=== PATIENT | male | born 1960 | race Two or more races ===

== ENCOUNTER 2019-04-30 15:32 | Inpatient (IN) | payer MEDICAID ==
[~2019-04-30] VITALS: Ht 175.3 cm; Wt 97.1 kg
[2019-04-30] MEDS: cloNIDine HCL 0.1 MG TAB PO ONE ×2 (15:58→16:06)
[2019-04-30] MEDS ORDERED: cloNIDine HCL 0.1 MG TAB ONE (16:01)
[2019-04-30] MEDS ORDERED: cloNIDine HCL 0.1 MG TAB PO ONE (16:15)
[2019-04-30 16:27] LABS: Basophils # (auto) 0.1 uL; Basophils % (auto) 1.3 % (0.0-2.0); Eosinophils # (auto) 0.1 uL; Hematocrit 46.4 % (41.0-53.0); Hemoglobin 15.5 g/dL (13.5-17.5); Lymphocytes # (auto) 1.6 uL; Lymphocytes % (auto) 20.6 % (10.0-50.0); Mean Corpuscular Hemoglobin 32.6 pg (28.0-32.0); Mean Corpuscular Hgb Conc. 33.4 g/dL (32.0-36.0); Mean Corpuscular Volume 97.6 fL (80.0-100.0); Monocytes # (auto) 0.6 uL; Monocytes % (auto) 7.7 % (0.0-12.0); Neutrophils # (auto) 5.4 uL; Neutrophils % (auto) 69.4 % (37.0-80.0); Platelet Count (auto) 228 10^3/uL (140-450); Red Blood Cells 4.76 10^6/uL (4.5-5.90); Red Cell Distribution Width 15.8 % (11.8-14.3); White Blood Cell 7.8 10^3/uL (4.4-10.8)
[2019-04-30 16:37] LABS: Albumin 3.7 g/dL (3.4-5.0); Calcium 8.5 mg/dL (8.5-10.1); Potassium 3.4 mmol/L (3.5-5.1)
[2019-04-30 16:40] LABS: BUN/Creatinine Ratio 19.6; Bilirubin, Total 0.9 mg/dL (0.2-1.0); Total Protein 7.3 g/dL (6.4-8.2)
[2019-04-30] MEDS ORDERED: SODIUM CHLORIDE 0.9% 1,000 ML IV ONE (17:17)
[2019-04-30] MEDS ORDERED: hydrALAZINE HCL 20 MG/ML VL IV ONE (17:30)
[2019-04-30] MEDS ORDERED: LABETALOL HCL 5 MG/ML ML 20ML VIAL IV ONE (17:30)
[2019-04-30] MEDS ORDERED: POTASSIUM EFFERVESENT TAB 25 MEQ PO ONE (17:45)
[2019-04-30] MEDS ORDERED: FUROSEMIDE 40 MG/4 ML VIAL IV ONE (20:30)
[2019-04-30] MEDS ORDERED: DEXTROSE (50%) 50ML SYRG IV PRN (20:45)
[2019-04-30] MEDS ORDERED: ONDANSETRON HCL 4 MG/2 ML VIAL IV PRN (20:45)
[2019-04-30] MEDS ORDERED: ACETAMINOPHEN 500 MG TAB PO PRN (20:45)
[2019-04-30] MEDS: InsuLIN REG 1unit/0.01ml Soln (100units/ml) SC SCH (22:00)
[2019-04-30] MEDS: ACCU-CHEK COMFORT CURVE STRIP VI SCH (22:00)
[2019-04-30 22:11] VITALS: BP 127/96
--- NOTE | 2019-04-30 22:11 | NUR ---
MS admit from [facility] admitted to tele room 0291B. Patient oriented to NANO GREEN, primary RN, unit, room, bed, and unit policies regarding patient care and visiting hours. Room air, pain level 0/10, and ambulates independently without assistive devices. Bed locked in lowest position, side rails up x2, and call light within reach. IV 20 g in left forearm IID inserted on 04/30/19. Skin intact: left nare previous nose bleed: packing CDI. Patient weighed by bedscale and encouraged to call if they need something. All questions and concerns addressed, patient verbalized understanding.
--- NOTE | 2019-04-30 23:19 | NUR ---
Patient refused blood sugar check; states he has never had any history of diabetes or blood sugar problems.
[2019-04-30] MEDS ORDERED: POTASSIUM CHL 20 Meq TABLET PO ONE (23:30)
[2019-04-30] MEDS ORDERED: ENAL2.5T2 PO (23:41)
[2019-04-30] MEDS ORDERED: FURO40TA4 PO (23:41)
[2019-04-30] MEDS ORDERED: POTA10TA51 PO (23:41)
[2019-05-01] MEDS ORDERED: chlordiazePOXIDE HCL 25 MG CAP PO PRN
--- NOTE | 2019-05-01 00:10 | NUR ---
Urine sample for UA sent to lab via [employer] system.
[2019-05-01 00:38] LABS: Urine Bacteria NONE SEEN /hpf (None Seen); Urine Blood Negative /uL (Negative); Urine Specific Gravity 1.006 (1.001-1.035); Urine WBC 1 /hpf (0 - 3)
[2019-05-01] MEDS: TEMAZEPAM 15 MG CAP PO PRN ×2 (03:42→20:43)
[2019-05-01 05:14] VITALS: BP 148/102
[2019-05-01] MEDS: InsuLIN REG 1unit/0.01ml Soln (100units/ml) SC SCH (05:38)
[2019-05-01] MEDS: ACCU-CHEK COMFORT CURVE STRIP VI SCH (05:38)
[2019-05-01] MEDS: FUROSEMIDE 40 MG/4 ML VIAL IV SCH ×3 (05:40→18:50)
[2019-05-01 07:28] LABS: Basophils # (auto) 0.1 uL; Basophils % (auto) 1.1 % (0.0-2.0); Eosinophils # (auto) 0.1 uL; Hematocrit 44.3 % (41.0-53.0); Hemoglobin 14.9 g/dL (13.5-17.5); Lymphocytes # (auto) 1.6 uL; Lymphocytes % (auto) 21.2 % (10.0-50.0); Mean Corpuscular Hemoglobin 32.5 pg (28.0-32.0); Mean Corpuscular Hgb Conc. 33.7 g/dL (32.0-36.0); Mean Corpuscular Volume 96.5 fL (80.0-100.0); Monocytes # (auto) 0.6 uL; Monocytes % (auto) 8.3 % (0.0-12.0); Neutrophils # (auto) 5.2 uL; Neutrophils % (auto) 68.4 % (37.0-80.0); Nucleated Red Blood Cells % 0.1 %; Platelet Count (auto) 217 10^3/uL (140-450); Red Blood Cells 4.59 10^6/uL (4.5-5.90); Red Cell Distribution Width 15.7 % (11.8-14.3); White Blood Cell 7.6 10^3/uL (4.4-10.8)
[2019-05-01 07:36] LABS: Potassium 3.8 mmol/L (3.5-5.1)
[2019-05-01 07:46] LABS: BUN/Creatinine Ratio 20.7; Calcium 8.4 mg/dL (8.5-10.1)
--- NOTE | 2019-05-01 08:00 | NUR ---
OPENING NOTE: PATIENT LYING IN BED. EVEN AND UNLABORED RESPIRATIONS NOTED NO SIGNS OF DISTRESS. SIMPLE FACE MASK IN PLACE. CALL LIGHT IN REACH.
[2019-05-01 09:00] VITALS: BP 144/97
[2019-05-01] MEDS ORDERED: FUROSEMIDE 40 MG/4 ML VIAL IV SCH (10:00)
[2019-05-01] MEDS: FOLIC ACID 1 MG TAB PO SCH (10:39)
[2019-05-01] MEDS: MULTIPLE VITAMIN TAB PO SCH (10:39)
[2019-05-01] MEDS: POTASSIUM CHL 20 Meq TABLET PO SCH (10:39)
[2019-05-01] MEDS: PANTOPRAZOLE 40 MG TAB PO SCH (10:39)
[2019-05-01] MEDS: THIAMINE 100mg/ml INJ (200mg/2ml VIAL) IV SCH (10:40)
[2019-05-01] MEDS: ENALAPRIL MALEATE 10 MG TAB PO SCH (10:40)
[2019-05-01 12:33] LABS: Amphetamine Screen, Urine NEGATIVE (NEGATIVE); Barbiturate Scree,Urine NEGATIVE (NEGATIVE); Benzodiazephine Screen, Urine NEGATIVE (NEGATIVE); Cannabinoid Screen, Urine NEGATIVE (NEGATIVE); Cocaine Screen, Urine NEGATIVE (NEGATIVE); Opiate Scree,Urine NEGATIVE (NEGATIVE); Phencyclidine Screen, Urine NEGATIVE (NEGATIVE)
[2019-05-01 13:00] VITALS: BP 152/96
--- NOTE | 2019-05-01 14:07 | NUR ---
WILDLIFE CONSERVATION PROFESSOR AT BEDSIDE.
[2019-05-01 17:54] VITALS: BP 120/79
--- NOTE | 2019-05-01 18:53 | NUR ---
CLOSING SHIFT NOTE: PATIENT RESTING IN BED. EVEN AND UNLABORED RESPIRATIONS WITH NO SIGNS OF DISTRESS NOTED. CALL LIGHT WITH IN REACH.
--- NOTE | 2019-05-01 19:14 | NUR ---
ENDORSED CARE TO NANO MALIK
--- NOTE | 2019-05-01 19:45 | NUR ---
Opening Shift Note: A&Ox4, resting in bed. Room air; wears 3LO2 via simple mask PRN for SOB; ambulates independently without assistive devices; pain level 0/10. Bed locked in lowest position, side rails up x2, and call light within reach. IV 20 g in left AC/forearm IID inserted on 04/30/19. Skin intact. POC discussed and questions answered. Will continue to round prn.
[2019-05-01 22:01] VITALS: BP 119/73
[2019-05-02 04:56] VITALS: BP 138/99
[2019-05-02] MEDS: FUROSEMIDE 40 MG/4 ML VIAL IV SCH (05:43)
[2019-05-02 06:16] LABS: Calcium 8.5 mg/dL (8.5-10.1); Potassium 3.4 mmol/L (3.5-5.1)
[2019-05-02 06:21] LABS: BUN/Creatinine Ratio 22.3
--- NOTE | 2019-05-02 07:34 | NUR ---
OPENING NOTE: PATIENT LYING IN BED AWAKE WATCHING TELEVISION. DISCUSSED PLAN OF CARE. PATIENT VERBALIZED UNDERSTANDING. EVEN AND UNLABORED RESPIRATIONS NOTED NO SIGNS OF DISTRESS. CALL LIGHT WITHIN REACH.
[2019-05-02 09:18] VITALS: BP 143/98
[2019-05-02] MEDS: MULTIPLE VITAMIN TAB PO SCH (09:21)
[2019-05-02] MEDS: POTASSIUM CHL 20 Meq TABLET PO SCH (09:21)
[2019-05-02] MEDS: PANTOPRAZOLE 40 MG TAB PO SCH (09:21)
[2019-05-02] MEDS: ENALAPRIL MALEATE 10 MG TAB PO SCH (09:21)
[2019-05-02] MEDS: THIAMINE 100mg/ml INJ (200mg/2ml VIAL) IV SCH (09:22)
[2019-05-02] MEDS: FOLIC ACID 1 MG TAB PO SCH (09:22)
--- NOTE | 2019-05-02 10:37 | NUR ---
CANCEL GARMENT MANUFACTURING SUPERVISOR CONSULT: PATIENT REQUESTED THIS RN TO CANCEL GARMENT MANUFACTURING SUPERVISOR CONSULT REQUEST FOR ADVANCE DIRECTIVES. PATIENT STATED HE CHANGED HIS MIND. EDUCATED PATIENT, AND WILL CONTINUE TO MONITOR.
[2019-05-02] MEDS ORDERED: POTASSIUM CHL 20 Meq TABLET PO ONE (13:00)
[2019-05-02 13:07] VITALS: BP 137/97
[2019-05-02 17:07] VITALS: BP 134/103
--- NOTE | 2019-05-02 18:06 | NUR ---
assessment Patient has no post discharge needs at this time. Addendum: 05/02/19 at 1806 by Suzi GAYLE Amended: Links added.
--- NOTE | 2019-05-02 18:51 | NUR ---
CLOSING SHIFT NOTE: PATIENT RESTING IN BED. EVEN AND UNLABORED RESPIRATIONS WITH NO SIGNS OF DISTRESS NOTED. CALL LIGHT WITHIN REACH. FALL PRECAUTIONS IN PLACE. PATIENT DENIES ANY PAIN AT THIS TIME. IV SL. EDUCATED ON FALL PRECAUTIONS, PATIENT VERBALIZED UNDERSTANDING.
--- NOTE | 2019-05-02 19:00 | NUR ---
Opening Shift Note Assumed care of patient, awake and alert. No S/S of distress/SOB or pain. Instructed on POC and to call for assist PRN, will continue to monitor for changes Q1hr and PRN.
--- NOTE | 2019-05-02 19:19 | NUR ---
ENDORSED CARE TO CHEY SCHULTZ
[2019-05-02] MEDS: TEMAZEPAM 15 MG CAP PO PRN (21:39)
[2019-05-02] MEDS: CARVEDILOL 12.5 MG TAB PO SCH (21:39)
[2019-05-02 21:46] VITALS: BP 146/84
[2019-05-02] MEDS ORDERED: METOPROLOL TARTRATE 25 MG TAB PO SCH (22:00)
[2019-05-03 04:34] VITALS: BP 123/71
[2019-05-03 04:50] LABS: Calcium 8.7 mg/dL (8.5-10.1); Potassium 4.1 mmol/L (3.5-5.1)
--- NOTE | 2019-05-03 07:38 | NUR ---
OPENING SHIFT NOTE: PATIENT ASLEEP IN BED. EVEN AND UNLABORED RESPIRATIONS NOTED NO SIGNS OF DISTRESS. CALL LIGHT WITHIN REACH. BED IN LOWEST LOCKED POSITION. WILL CONTINUE TO MONITOR.
--- NOTE | 2019-05-03 08:39 | NUR ---
D/C Planning Per SS consult for Advanced Directive information. As requested attempted to provide information to Pt at bedside. However, Pt refused information and said he did not want it after all.
[2019-05-03 09:00] VITALS: BP 129/94
[2019-05-03] MEDS: FOLIC ACID 1 MG TAB PO SCH (09:17)
[2019-05-03] MEDS: MULTIPLE VITAMIN TAB PO SCH (09:17)
[2019-05-03] MEDS: PANTOPRAZOLE 40 MG TAB PO SCH (09:18)
[2019-05-03] MEDS: THIAMINE HCL 100 MG TAB PO SCH (09:18)
[2019-05-03] MEDS: CARVEDILOL 12.5 MG TAB PO SCH ×2 (09:19→23:03)
[2019-05-03] MEDS: ENALAPRIL MALEATE 10 MG TAB PO SCH (09:20)
[2019-05-03] MEDS ORDERED: FUROSEMIDE 40 MG/4 ML VIAL IV SCH (10:00)
--- NOTE | 2019-05-03 10:24 | NUR ---
HAMILTON STODDARD AT BEDSIDE. EDUCATION GIVEN REGARDING CARDIAC CATHETERIZATION. ALL QUESTIONS ANSWERED. PATIENT VERBALIZED UNDERSTANDING.
[2019-05-03] MEDS: ACETYLCYSTEINE ORAL for CIN 20%(200MG/ML) 4ML PO SCH ×2 (10:25→23:03)
[2019-05-03 13:00] VITALS: BP 125/92
--- NOTE | 2019-05-03 14:22 | NUR ---
NUTRITION ASSESSMENT NOTES Please refer to link notes of nutrition screen form filed under the intervention section of the plan of care for further details. Est. Needs: 1950 kcal to 2400 kcal (20-25 kcal/kgBW), 78 gms to 97 gms pro (0.8-1.0 gms/kgBW). Will continue to monitor pertinent labs and reassess nutrient need prn Thank you. Addendum: 05/03/19 at [address] Amended: Links added.
--- NOTE | 2019-05-03 14:25 | NUR ---
CONSENTS SIGNED AND PLACED IN HARD CHART.
[2019-05-03] MEDS ORDERED: SODIUM CHLORIDE 0.9% 1,000 ML IV SCH (15:09)
--- NOTE | 2019-05-03 15:58 | NUR ---
SPOKE WITH AL FROM [facility]. SHE REQUESTED PATIENT INFORMATION PER HAMILTON STODDARD'S ORDERS FOR [facility]. FAXED REQUESTED INFO, AND TRANSACTION RECORD PLACED IN HARD CHART.
[2019-05-03 17:00] VITALS: BP 127/100
--- NOTE | 2019-05-03 19:29 | NUR ---
CARE ENDORSED TO QUENTIN MALIK.
--- NOTE | 2019-05-03 20:00 | NUR ---
Opening Shift Note Assumed care of patient, awake and alert, oriented x 4. On room air with even and unlabored respirations, no s/s of distress or SOB. Patient ambulating with steady gait and turns independently in bed. Bed low locked position with side rails up x 2 and call light within reach. Patient denies pain at this time. Iv to left forearm 20 intact and patent. Instructed on POC and to call for assist PRN, will continue to monitor for changes Q1hr and PRN.
[2019-05-03 22:00] VITALS: BP 162/84
[2019-05-04 05:00] VITALS: BP 116/88
--- NOTE | 2019-05-04 05:00 | NUR ---
Received phone call from family Family of FERNIE SAEED updated on patient's status and condition. All questions and concerns addressed. Haroldo liangized understanding. Addendum: 05/04/19 at 0700 by Juany Kelly RN RN wrong patient
--- NOTE | 2019-05-04 06:23 | NUR ---
EKG completed per order placed in hard chart
[2019-05-04 06:27] LABS: Basophils # (auto) 0.1 uL; Basophils % (auto) 1.5 % (0.0-2.0); Eosinophils # (auto) 0.2 uL; Eosinophils % (auto) 2.8 % (0.0-7.0); Hematocrit 42.5 % (41.0-53.0); Hemoglobin 14.7 g/dL (13.5-17.5); Lymphocytes # (auto) 2.1 uL; Lymphocytes % (auto) 33.7 % (10.0-50.0); Mean Corpuscular Hemoglobin 33.7 pg (28.0-32.0); Mean Corpuscular Hgb Conc. 34.6 g/dL (32.0-36.0); Mean Corpuscular Volume 97.4 fL (80.0-100.0); Monocytes # (auto) 0.5 uL; Monocytes % (auto) 8.4 % (0.0-12.0); Neutrophils # (auto) 3.4 uL; Neutrophils % (auto) 53.6 % (37.0-80.0); Nucleated Red Blood Cells % 0.1 %; Platelet Count (auto) 210 10^3/uL (140-450); Red Blood Cells 4.37 10^6/uL (4.5-5.90); Red Cell Distribution Width 15.7 % (11.8-14.3); White Blood Cell 6.3 10^3/uL (4.4-10.8)
[2019-05-04 06:51] LABS: Partial Thromboplastin Time 26.8 sec (23.64-32.05)
--- NOTE | 2019-05-04 06:57 | NUR ---
Closing Note patient resting in bed with even and unlabored respiration. No s/s of distress or SOB. IV intact and patent. Bed low locked position with side rails up x 2 and call light within reach. Patient verbalized understanding NPO after breakfast. Endorsed care day shift RN.
[2019-05-04 07:01] LABS: BUN/Creatinine Ratio 23.4; Calcium 8.9 mg/dL (8.5-10.1); Potassium 4.2 mmol/L (3.5-5.1)
--- NOTE | 2019-05-04 07:30 | NUR ---
Opening Shift Note RECEIVED REPORT FROM NOC RN. Assumed care of patient, awake and alert. No S/S of distress/SOB or pain. BED IN LOWEST, LOCKED POSITION WITH CALL LIGHT WITHIN REACH. Instructed on POC and to call for assist PRN, will continue to monitor for changes Q1hr and PRN.
[2019-05-04 08:15] VITALS: BP 131/98
[2019-05-04 09:00] VITALS: BP 131/98
[2019-05-04] MEDS: FOLIC ACID 1 MG TAB PO SCH (09:42)
[2019-05-04] MEDS: MULTIPLE VITAMIN TAB PO SCH (09:42)
[2019-05-04] MEDS: PANTOPRAZOLE 40 MG TAB PO SCH (09:42)
[2019-05-04] MEDS: THIAMINE HCL 100 MG TAB PO SCH (09:42)
[2019-05-04] MEDS: ENALAPRIL MALEATE 10 MG TAB PO SCH (09:43)
[2019-05-04] MEDS: CARVEDILOL 12.5 MG TAB PO SCH (09:43)
[2019-05-04] MEDS: ACETYLCYSTEINE ORAL for CIN 20%(200MG/ML) 4ML PO SCH (09:53)
--- NOTE | 2019-05-04 10:29 | NUR ---
I called Samreen with [facility] regarding [facility] order-she will be here in about 10 minutes.
--- NOTE | 2019-05-04 10:30 | NUR ---
PATIENT TAKEN TO MACHINE OR MACHINERY MECHANIC.
--- NOTE | 2019-05-04 13:00 | NUR ---
PATIENT WAS IN TONAL REGULATOR DURING 1300 VITAL SIGNS
--- NOTE | 2019-05-04 15:35 | NUR ---
PATIENT BACK FROM RESEARCH PHLEBOTOMIST. PROCEDURE CANCELLED DUE TO RESEARCH PHLEBOTOMIST SCHEDULE.
[2019-05-04 16:00] VITALS: BP 147/91
--- NOTE | 2019-05-04 16:02 | NUR ---
AMA Note [facility] states they want to leave the hospital Against Medical Advice (AMA). Patient encouraged to stay for further treatment/stabilization. DR. PATRICIA notified of patient's wishes. Patient advised of the risks and benefits of leaving AMA. Patient verbalized understanding. Patient encouraged to return to the ER if symptoms do not improve or worsen.
[2019-05-05] MEDS ORDERED: SACUBITRIL-VALSARTAN 24mg/26mg TAB PO SCH (22:00)
== END 2019-05-04 16:02 | disposition left against medical advice (07) | DRG 194 ==
LOC: ER 15:32 → TELE 15:33 → TELE-WESTW 22:13
PROVIDERS: ADMIT Nurse Practitioner Family; ATTEND Internal Medicine
PROC: 2Y41X5Z Packing of Nasal Region using Packing Material (ICD-10-PCS; principal; 2019-04-30)
DX: I13.0 Hypertensive heart and chronic kidney disease with heart failure and stage 1 through stage 4 chronic kidney disease, or unspecified chronic kidney disease (principal); N17.0 Acute kidney failure with tubular necrosis; I50.43 Acute on chronic combined systolic (congestive) and diastolic (congestive) heart failure; I16.1 Hypertensive emergency; E87.6 Hypokalemia; R04.0 Epistaxis; N18.3 Chronic kidney disease, stage 3 (moderate); E66.9 Obesity, unspecified; F10.10 Alcohol abuse, uncomplicated; Y90.9 Presence of alcohol in blood, level not specified; M79.89 Other specified soft tissue disorders; N28.9 Disorder of kidney and ureter, unspecified; Z82.49 Family history of ischemic heart disease and other diseases of the circulatory system; Z83.3 Family history of diabetes mellitus; Z79.899 Other long term (current) drug therapy; Z68.31 Body mass index [BMI] 31.0-31.9, adult; Z53.21 Procedure and treatment not carried out due to patient leaving prior to being seen by health care provider
CPT/HCPCS: 30901; 36415; 71045; 71046; 80048; 80053; 80307; 81001; 82962; 83036; 83880; 84443; 84484; 85025; 85610; 85730; 86850; 86900; 86901; 93005; 93306; 96374; 96375; G0378